=== PATIENT | female | born 1955 | race African-American/Black ===

== ENCOUNTER 2018-11-02 08:20 | Emergency (ER) | payer MEDICARE, MEDICAID ==
[2018-11-02] MEDS ORDERED: Morphine 4 MG/ML VIAL ONE (08:52)
[2018-11-02] MEDS ORDERED: Iopamidol 370 76% 100 ML VIAL ONE (09:00)
[2018-11-02 09:04] LABS: #Basophils 0.1 thou/uL (0.0-0.2); #Eosinphils 0.1 thou/uL (0.0-0.7); #Lymphocytes 0.7 thou/uL (1.20-3.40); #Monocytes 0.3 thou/uL (0.11-0.59); #Neutrophils 4.6 thou/uL (1.40-6.50); %Basophils 1.1 % (0.0-1.0); %Eosinophils 2.4 % (0.0-10.0); %Lymphocytes 12.3 % (21.0-51.0); %Monocytes 5.5 % (0.0-10.0); %Neutrophils 78.7 % (42.0-75.0); Hemoglobin 13.2 g/dL (12.0-16.0); Mean Corpuscular HGB CONC 33.7 g/dL (32.0-36.0); Mean Corpuscular Hemoglobin 31.8 pg (27.0-31.0); Mean Corpuscular Volume 94.3 fL (78.0-98.0); Mean Platelet Volume 6.9 fL (7.4-10.4); Platelet Count 300 thou/uL (130-400); RBC Distribution Width 13.4 % (11.5-14.5); Red Blood Cell (RBC) Count 4.14 mill/uL (4.20-5.40); White Blood Cell (WBC) Count 5.9 thou/uL (4.8-10.8)
[2018-11-02 09:13] LABS: ALT (SGPT) 10 U/L (8-55); AST (SGOT) 19 U/L (5-34); Albumin 4.2 g/dL (3.4-4.8); Alkaline Phosphatase 62 U/L (40-150); Anion Gap 15 mmol/L (10-20); BUN (Urea Nitrogen) 12 mg/dL (9.8-20.1); Bilirubin, Total 0.6 mg/dL (0.2-1.2); CK (CPK) 117 U/L (29-168); Calc. Creatinine Clearance 0 mL/min (70-130); Calcium 10.1 mg/dL (7.8-10.44); Carbon Dioxide 28 mmol/L (23-31); Chloride 103 mmol/L (98-107); Estimated GFR-MDRD 60; Globulin 4.4 g/dL (2.4-3.5); Glucose 165 mg/dL (80-115); Potassium 3.6 mmol/L (3.5-5.1); Protein, Total 8.6 g/dL (6.0-8.3); Sodium 142 mmol/L (136-145)
[2018-11-02] MEDS ORDERED: Aspirin Chewable 81 MG TAB ONE (10:12)
--- NOTE | 2018-11-02 17:28 | RAD ---
PORTABLE CHEST: 11/02/18 An AP portable film at 0826 is compared with a 06/28/18 study. The heart is moderately enlarged but no different than before. The vessels show no congestion. There is no edema, focal infiltrate, or pleural effusion. IMPRESSION: Stable cardiomegaly. POS: HOME
--- NOTE | 2018-11-02 17:44 | CT ---
CT ANGIO OF THE CHEST 11/02/18 Comparison is made with the prior study dated 04/18/13. The pulmonary arteries are well opacified and show no defects to suggest emboli. The heart is enlarge d, all chambers. There is no sign of pericardial effusion. There is no evidence of aortic dissection or aneurysm. Some calcifications are seen in the coronary arteries. There is an 8 to 9 mm ground glass density in the right upper lobe near the anterior chest wall and a second small smooth 5 to 6 mm nodule laterally in the right upper lobe. I do not see the ground glas s density on the old CT. There may have been a slight increased density where the smooth 5 mm nodule is today. These are in the patient's radiation field, so I do not know if that could be associated or not. The ground glass density in particular, could be an area of scarring, but needs to be watched. Otherwise, the lungs show no acute infiltrate or effusion. A little dependent atelectasis is present. Scans into the upper abdomen show a 2.5 cm left adrenal mass with decidedly negative CT numbers consi stent with an adenoma. Looking back at the 2012 scan this was present but not as easily seen at the t jerad. The visible portions of the liver are unremarkable. There is a small hiatal hernia. IMPRESSION: 1. No evidence of pulmonary embolism or pneumonia. 2. Two subcentimeter nodular densities in the right upper lobe, one smooth and ovoid and one mor e a ground glass density. See discussion above. These should probably be followed up in the next 3 to 6 months with another scan given her history. 3. 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 It can be seen on the prior study in ret rospect. Findings discussed with Dr. Tolbert at 1003 on 11/02/18. POS: HOME
== END 2018-11-02 10:36 | disposition short-term general hospital (02) ==
LOC: BURERS 08:20
DX: R07.89 Other chest pain (principal); E11.9 Type 2 diabetes mellitus without complications; E78.5 Hyperlipidemia, unspecified; I11.0 Hypertensive heart disease with heart failure; I50.9 Heart failure, unspecified; F17.210 Nicotine dependence, cigarettes, uncomplicated; Z79.899 Other long term (current) drug therapy; Z79.84 Long term (current) use of oral hypoglycemic drugs; Z79.82 Long term (current) use of aspirin
CPT/HCPCS: 71045; 71275; 80053; 82550; 83880; 84484; 85025; 93005; 94760; 96361; 96374; J2270; Q9967

== ENCOUNTER 2018-11-16 15:03 | Emergency (ER) | payer MEDICARE, MEDICAID ==
[2018-11-16] MEDS ORDERED: Ketorolac Tromethamine 60 MG/2 ML VIAL ONE (15:22)
== END 2018-11-16 15:33 | disposition home or self-care (01) ==
LOC: BURERS 15:03
DX: R07.89 Other chest pain (principal); E78.5 Hyperlipidemia, unspecified; E11.9 Type 2 diabetes mellitus without complications; I11.0 Hypertensive heart disease with heart failure; I50.9 Heart failure, unspecified; F17.210 Nicotine dependence, cigarettes, uncomplicated
CPT/HCPCS: 96372; J1885

== ENCOUNTER 2019-07-28 09:07 | Emergency (ER) | payer MEDICARE, MEDICAID | END 2019-07-28 09:42 | disposition home or self-care (01) | LOC: BURERS 09:07 | DX: B85.0 Pediculosis due to Pediculus humanus capitis (principal); I11.0 Hypertensive heart disease with heart failure; I50.9 Heart failure, unspecified; E11.9 Type 2 diabetes mellitus without complications; E78.5 Hyperlipidemia, unspecified; E78.00 Pure hypercholesterolemia, unspecified; F17.210 Nicotine dependence, cigarettes, uncomplicated | CPT/HCPCS: 99282 ==

== ENCOUNTER 2019-09-09 10:20 | Emergency (ER) | payer MEDICARE, MEDICAID | END 2019-09-09 10:56 | disposition home or self-care (01) | LOC: BURERS 10:20 | DX: L20.9 Atopic dermatitis, unspecified (principal); E11.9 Type 2 diabetes mellitus without complications; I11.0 Hypertensive heart disease with heart failure; I50.9 Heart failure, unspecified; E78.5 Hyperlipidemia, unspecified; E78.00 Pure hypercholesterolemia, unspecified; F17.210 Nicotine dependence, cigarettes, uncomplicated | CPT/HCPCS: 99282 ==

== ENCOUNTER 2020-02-02 12:20 | Emergency (ER) | payer MEDICARE, MEDICAID ==
[2020-02-02] MEDS ORDERED: traMADol HCl 50 MG TAB ONE (12:32)
[2020-02-02] MEDS ORDERED: AMOXicillin 250 MG CAP ONE (12:32)
[2020-02-02] MEDS ORDERED: Ibuprofen 800 MG TAB ONE (12:38)
== END 2020-02-02 12:40 | disposition home or self-care (01) ==
LOC: BURERS 12:20
DX: H66.93 Otitis media, unspecified, bilateral (principal); I11.0 Hypertensive heart disease with heart failure; I50.9 Heart failure, unspecified; E11.9 Type 2 diabetes mellitus without complications; E78.5 Hyperlipidemia, unspecified; E78.00 Pure hypercholesterolemia, unspecified; F17.210 Nicotine dependence, cigarettes, uncomplicated; Z85.3 Personal history of malignant neoplasm of breast
CPT/HCPCS: 99282

== ENCOUNTER 2020-03-06 13:19 | Emergency (ER) | payer MEDICARE, MEDICAID | END 2020-03-06 14:34 | disposition left against medical advice (07) | LOC: BURERS 13:19 | DX: Z53.21 Procedure and treatment not carried out due to patient leaving prior to being seen by health care provider (principal) ==

== ENCOUNTER 2020-03-11 12:55 | Emergency (ER) | payer MEDICARE, MEDICAID | END 2020-03-11 13:21 | disposition home or self-care (01) | LOC: BURERS 12:55 | DX: L76.34 Postprocedural seroma of skin and subcutaneous tissue following other procedure (principal); L29.9 Pruritus, unspecified; Z87.891 Personal history of nicotine dependence | CPT/HCPCS: 99282 ==

== ENCOUNTER 2021-07-29 07:33 | Emergency (ER) | payer MEDICARE, MEDICAID ==
[2021-07-29] MEDS ORDERED: Ibuprofen 800 MG TAB ONE (08:03)
[2021-07-29] MEDS ORDERED: HYDROcodone/Acetaminophen 5/325 mg Tablet ONE (08:03)
== END 2021-07-29 08:57 | disposition home or self-care (01) ==
LOC: BURERS 07:33
DX: M10.9 Gout, unspecified (principal); I11.0 Hypertensive heart disease with heart failure; I50.9 Heart failure, unspecified; E11.9 Type 2 diabetes mellitus without complications; F17.210 Nicotine dependence, cigarettes, uncomplicated
CPT/HCPCS: 36415; 84550

== ENCOUNTER 2021-08-19 20:30 | Emergency (ER) | payer MEDICARE, MEDICAID ==
[2021-08-19] MEDS ORDERED: diphenhydrAMINE 25 MG CAP ONE (20:43)
[2021-08-19] MEDS ORDERED: diphenhydrAMINE 12.5 MG/5 ML UDCUP ONE (20:46)
== END 2021-08-19 20:57 | disposition home or self-care (01) ==
LOC: BURERS 20:30
DX: L30.9 Dermatitis, unspecified (principal); I11.0 Hypertensive heart disease with heart failure; I50.9 Heart failure, unspecified; E11.9 Type 2 diabetes mellitus without complications; F17.210 Nicotine dependence, cigarettes, uncomplicated; Z85.3 Personal history of malignant neoplasm of breast
CPT/HCPCS: 99283; Q0163

== ENCOUNTER 2022-12-17 14:45 | Emergency (ER) | payer MEDICARE, OTHER ==
[2022-12-17] MEDS ORDERED: predniSONE 20 MG TAB ONE (14:59)
[2022-12-17] MEDS ORDERED: Famotidine 20 MG TAB ONE (14:59)
[2022-12-17 15:26] LABS: #Basophils 0.1 thou/uL (0.0-0.2); #Eosinphils 0.2 thou/uL (0.0-0.7); #Lymphocytes 1.3 thou/uL (1.20-3.40); #Monocytes 0.8 thou/uL (0.11-0.59); #Neutrophils 4.7 thou/uL (1.40-6.50); %Basophils 1.1 % (0.0-1.0); %Eosinophils 3.4 % (0.0-10.0); %Lymphocytes 17.8 % (21.0-51.0); %Monocytes 10.8 % (0.0-10.0); Hemoglobin 7.2 g/dL (12.0-16.0); Mean Corpuscular HGB CONC 29.4 g/dL (32.0-36.0); Mean Corpuscular Hemoglobin 25.5 pg (27.0-31.0); Mean Corpuscular Volume 86.5 fl (78.0-98.0); Mean Platelet Volume 7.1 fL (7.4-10.4); Platelet Count 277 10x3/uL (130-400); RBC Distribution Width 15.7 % (11.5-14.5); Red Blood Cell (RBC) Count 2.84 mill/uL (4.20-5.40)
[2022-12-17 15:36] LABS: ALT (SGPT) 14 U/L (8-55); AST (SGOT) 21 U/L (5-34); Albumin 3.8 g/dL (3.4-4.8); Alkaline Phosphatase 65 U/L (40-110); Anion Gap 13 mmol/L (10-20); BUN (Urea Nitrogen) 17 mg/dL (9.8-20.1); Bilirubin, Total 0.2 mg/dL (0.2-1.2); Calc. Creatinine Clearance 0 mL/min (70-130); Calcium 9.3 mg/dL (7.8-10.44); Carbon Dioxide 25 mmol/L (23-31); Chloride 106 mmol/L (98-107); Estimated GFR 31; Globulin 4.4 g/dL (2.4-3.5); Glucose 89 mg/dL (80-115); Protein, Total 8.2 g/dL (5.8-8.1); Sodium 140 mmol/L (136-145)
[2022-12-17 15:47] LABS: Hypochromia SLIGHT = 6-15 cells (100X) (0-5/hpf); MDiff Complete? YES; Platelet Morphology Comment Appears Adequate
== END 2022-12-17 16:04 | disposition home or self-care (01) ==
LOC: BURERS 14:45
DX: L29.9 Pruritus, unspecified (principal); R05.3 Chronic cough; N28.9 Disorder of kidney and ureter, unspecified; E11.9 Type 2 diabetes mellitus without complications; I11.0 Hypertensive heart disease with heart failure; I50.9 Heart failure, unspecified; F17.210 Nicotine dependence, cigarettes, uncomplicated; Z79.84 Long term (current) use of oral hypoglycemic drugs; Z79.899 Other long term (current) drug therapy
CPT/HCPCS: 36415; 80053; 85025; 99283; J7512

== ENCOUNTER 2023-01-05 10:41 | Emergency (ER) | payer MEDICARE, OTHER ==
[2023-01-05] MEDS ORDERED: predniSONE 20 MG TAB ONE (10:59)
== END 2023-01-05 11:09 | disposition home or self-care (01) ==
LOC: BURERS 10:41
DX: R21 Rash and other nonspecific skin eruption (principal); I11.0 Hypertensive heart disease with heart failure; I50.9 Heart failure, unspecified; E11.9 Type 2 diabetes mellitus without complications; F17.210 Nicotine dependence, cigarettes, uncomplicated; Z85.3 Personal history of malignant neoplasm of breast
CPT/HCPCS: 99283; J7512

== ENCOUNTER 2023-02-08 11:16 | Emergency (ER) | payer MEDICARE, OTHER ==
[2023-02-08] MEDS ORDERED: methylPREDNISolone Sod Succ/PF 125 MG/2 ML VIAL ONE (11:40)
[2023-02-08] MEDS ORDERED: diphenhydrAMINE 50 MG/ML VIAL ONE (11:40)
[2023-02-08 12:00] LABS: #Monocytes 0.6 thou/uL (0.11-0.59); #Neutrophils 4.9 thou/uL (1.40-6.50); %Basophils 0.5 % (0.0-1.0); %Eosinophils 0.1 % (0.0-10.0); %Lymphocytes 14.9 % (21.0-51.0); %Monocytes 9.2 % (0.0-10.0); %Neutrophils 75.4 % (42.0-75.0); Anisocytosis SLIGHT = 6-15 cells (100X) (0-5/hpf); Elliptocytes SLIGHT = 2-5 cells (100X) (0-1/hpf); Hemoglobin 8.1 g/dL (12.0-16.0); Hypochromia SLIGHT = 6-15 cells (100X) (0-5/hpf); MDiff Complete? YES; Mean Corpuscular HGB CONC 29.2 g/dL (32.0-36.0); Mean Corpuscular Hemoglobin 24.4 pg (27.0-31.0); Mean Corpuscular Volume 83.8 fl (78.0-98.0); Mean Platelet Volume 7.8 fL (7.4-10.4); Platelet Count 271 10x3/uL (130-400); Poikilocytosis SLIGHT = 6-15 cells (100X) (0-5/hpf); RBC Distribution Width 17.9 % (11.5-14.5); Schistocytes SLIGHT = 2-5 cells (100X) (0-1/hpf); Target Cells SLIGHT = 2-5 cells (100X) (0-1/hpf); White Blood Cell (WBC) Count 6.5 10x3/uL (4.8-10.8)
[2023-02-08 12:04] LABS: ALT (SGPT) 13 U/L (8-55); AST (SGOT) 24 U/L (5-34); Albumin 3.2 g/dL (3.4-4.8); Alkaline Phosphatase 63 U/L (40-110); Anion Gap 15 mmol/L (10-20); BUN (Urea Nitrogen) 23 mg/dL (9.8-20.1); Bilirubin, Total 0.5 mg/dL (0.2-1.2); Calc. Creatinine Clearance 0 mL/min (70-130); Calcium 8.2 mg/dL (7.8-10.44); Carbon Dioxide 25 mmol/L (23-31); Chloride 100 mmol/L (98-107); Estimated GFR 31; Globulin 3.4 g/dL (2.4-3.5); Glucose 167 mg/dL (80-115); Magnesium 2.1 mg/dL (1.6-2.6); Potassium 3.4 mmol/L (3.5-5.1); Protein, Total 6.6 g/dL (5.8-8.1); Sodium 137 mmol/L (136-145)
== END 2023-02-08 12:55 | disposition home or self-care (01) ==
LOC: BURERS 11:16
DX: L20.9 Atopic dermatitis, unspecified (principal); D64.9 Anemia, unspecified; N28.9 Disorder of kidney and ureter, unspecified; E11.9 Type 2 diabetes mellitus without complications; I11.0 Hypertensive heart disease with heart failure; I50.9 Heart failure, unspecified; F17.210 Nicotine dependence, cigarettes, uncomplicated
CPT/HCPCS: 36415; 80053; 83735; 85025; 96374; 96375; J1200; J2930